=== PATIENT | male | born 1955 | race Two or more races ===

== ENCOUNTER → 2016-08-29 | Outpatient (CLI) | payer BC ==
--- NOTE | 2016-08-29 12:21 | RAD ---
Indication pain. AP and lateral views of the lumbar spine were obtained as well as a coned view targeted to the lumbosacral junction. Vertebral height and alignment are well maintained. There are small osteophytes seen associated with L5 and there is very slight disc space narrowing at L5-S1. Vascular calcification is noted. An acute bony finding is not seen. IMPRESSION: Slight degenerative change. No acute finding seen
== END | disposition home or self-care (01) ==
LOC: DXRADRC 12:00
PROVIDERS: ATTEND Nurse Practitioner Family
DX: M47.816 Spondylosis without myelopathy or radiculopathy, lumbar region (principal); M25.78 Osteophyte, vertebrae
CPT/HCPCS: 72100